=== PATIENT | female | born 1960 | race Caucasian/White ===

== ENCOUNTER → 2021-02-17 07:14 | Outpatient (CLI) | payer OTHER, SELFPAY ==
[2021-02-18 01:52] LABS: SARS-CoV-2 RNA PCR Negative
== END ==
PROVIDERS: PCP Family Medicine Adolescent Medicine; Visit Provider Physician Assistant
DX: R05 Cough (principal); J02.9 Acute pharyngitis, unspecified; Z20.822 Contact with and (suspected) exposure to COVID-19
CPT/HCPCS: C9803; U0003; U0005

== ENCOUNTER → 2021-07-01 00:22 | Outpatient (CLI) | payer OTHER, SELFPAY ==
[2021-07-03 19:59] LABS: SARS-CoV-2 RNA PCR Negative
== END ==
PROVIDERS: PCP Family Medicine Adolescent Medicine; Visit Provider Physician Assistant
DX: R05.9 Cough, unspecified (principal); Z20.822 Contact with and (suspected) exposure to COVID-19
CPT/HCPCS: C9803; U0003; U0005

== ENCOUNTER 2024-10-27 19:12 | Emergency (ER) | payer OTHER, SELFPAY ==
--- NOTE | ~2024-10-27 | XR_ITS ---
XR hand RT min 3V Ordering provider: Beverly De Souza MD History: . fall, hit hand . Comparison: None. FINDINGS: BONES: No acute fracture or dislocation. Sclerotic areas seen in the distal tip of the distal phalanx of the fourth finger suggestive of osteoma. Follow-up advised.. JOINT SPACES: Normal. SOFT TISSUES: Normal. IMPRESSION: No acute osseous abnormality right hand. 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 Follow-up advised. Reviewed, dictated and finalized at location A. IMPRESSION: No acute osseous abnormality right hand. 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 Follow -up advised.
--- NOTE | ~2024-10-27 | CT_ITS ---
CT facial & cervical spine wo Ordering provider: Beverly De Souza MD History: . fall, hit face . Comparison: None. Technique: Thin slice axial CT of the facial bones was performed without contrast. Coronal and sagit ld reformatted images were also obtained. . Automated exposure control and iterative reconstruction technique were employed. The dose-length product was 204.26 mGy-cm. FINDINGS: PARANASAL SINUSES: Well aerated. Left nasal septal deviation. BONES: No facial fracture including no nasal bone fracture. ORBITS AND SUPERFICIAL SOFT TISSUES: The optic globes and orbits are normal. Small right frontal scal p hematoma. Otherwise, The superficial soft tissues are normal. VISUALIZED MASTOIDS: Well aerated. LIMITED VISUALIZED BRAIN PARENCHYMA: Normal. IMPRESSION: No facial fracture. CT facial & cervical spine wo Ordering provider: Beverly De Souza MD History: . fall, hit face . Comparison: None. Technique: CT of the cervical spine was performed without contrast. Sagittal and coronal reformatted images were also obtained and reviewed. Automated exposure control and iterative reconstruction arpan hnique were employed. The dose-length product was 204.26 mGy-cm. FINDINGS: VERTEBRAE: No subluxation or acute fracture. The occipital condyles are intact. DISC SPACES: Narrowing of the disc C5-C6. Multilevel facet joint disease. Multilevel uncovertebral pato int osteoarthritic changes. Multilevel intervertebral foraminal narrowing seen. PARASPINOUS SOFT TISSUES: Normal. IMPRESSION: No acute osseous abnormality cervical spine. Degenerative disc disease at the level of C5-C6. Reviewed, dictated and finalized at location A. IMPRESSION: No facial fracture. CT facial & cervical spine wo Ordering provider: Beverly De Souza MD History: . fall, hit face . Comparison: None. Technique: CT of the cervical spine was performed without contrast. Sagittal a nd coronal reformatted images were also obtained and reviewed. Automated expos ure control and iterative reconstruction technique were employed. The dose-marlon th product was 204.26 mGy-cm. FINDINGS: VERTEBRAE: No subluxation or acute fracture. The occipital condyles are intact. DISC SPACES: Narrowing of the disc C5-C6. Multilevel facet joint disease. Multi level uncovertebral joint osteoarthritic changes. Multilevel intervertebral for aminal narrowing seen. PARASPINOUS SOFT TISSUES: Normal.
--- NOTE | ~2024-10-27 | CT_ITS ---
CT brain wo con Ordering provider: Beverly De Souza MD History: 64 years Female with . fall, hit face . Comparison: None. Technique: CT of the head without contrast. Radiation reduction technique utilized.The dose-length pr oduct was 681 mGy-cm. FINDINGS: BRAIN PARENCHYMA AND CSF SPACES: Mild leukoaraiosis and diffuse cortical atrophy. Mild atheromatous d isease. No midline shift, mass effect or hemorrhage. The brain parenchyma and CSF spaces are otherwi se normal. VISUALIZED PARANASAL SINUSES: Well aerated. Left nasal septal deviation. MASTOIDS: Well aerated. BONES: The bones appear intact. SOFT TISSUES: Visualized nasopharynx is normal. Superficial soft tissues are normal. IMPRESSION: No acute intracranial findings. Reviewed, dictated and finalized at location A.
--- OUTSIDE RECORDS SUMMARY | 2024-10-27 19:14 | XMS_ITS | Clinical Summary ---
Author Organization [facility] Address [address] [place] [address] Care Team Providers Care Fiber Designer Name Role Phone Jacinto Tabares MD Primary Care Provider + Source Comments [facility],non-[facility] Affiliates and Associated Physician Practices is amultiple site organization consisting of ambulatory clinics and hospital sitesin [place], [place], [place] and [place]. This disclosure is being madepursuant to the Care Everywhere program and may not contain all information available regarding this patient. Last updated 18.[facility] Allergies Active Allergy Reactions Criticality Noted Date Comments Amoxicillin 11/24/2016 CAN TAKE 500 MG CAN NOT TAKE 875 MG Augmentin 11/24/2016 Clarithromycin GI Discomfort 11/24/2016 metallic taste in mouth Doxycycline 11/24/2016 Dirithromycin 11/24/2016 Erythromycin 11/24/2016 Levofloxacin 11/24/2016 Sulfa Drugs 11/24/2016 Azithromycin 11/24/2016 Medications * Be aware that medications may not be up to date on this document. Alwaysverify current medications with the patient. Triamcinolone Acetonide (NASACORT AQ NA) Act shayy ibuprofen (ADVIL) 200 MG capsule Take 200 mg by mouth 3 times daily Active Family History Medical History Relation Name Comments Cancer - Liver Father Relation Name Status Comments Father Social History Tobacco Use Types Packs/Day Years Used Date Smoking Tobacco: Never Smokeless Tobacco: Never Comments No Sex and Gender Information Value Date Recorded Sex Assigned at Not on file Legal Sex Female 9:22 AM CDT Gender Identity Not on file Sexual Orientation Not on file Last Filed Vital Signs Vital Sign Reading Time Taken Comments Blood Pressure 138/82 08/18/2019 6:21 PM AMBULATORY TECHNOLOGIST Pulse 90 08/18/2019 6:21 PM AMBULATORY TECHNOLOGIST Temperature 36.7 C (98.1 F) 08/18/2019 6:21 PM AMBULATORY TECHNOLOGIST Respiratory Rate 14 08/18/2019 6:21 PM AMBULATORY TECHNOLOGIST Oxygen Saturation 98% 08/18/2019 6:21 PM AMBULATORY TECHNOLOGIST Inhaled Oxygen Concentration - - Weight 68 kg (150 lb) 08/18/2019 6:21 PM AMBULATORY TECHNOLOGIST Height 171.5 cm (5' 7.5 ) 08/18/2019 6:21 PM AMBULATORY TECHNOLOGIST Body Mass Index 23.15 08/18/2019 6:21 PM AMBULATORY TECHNOLOGIST Plan of Treatment Health Maintenance Due Date Last Done Comments BONE DENSITY TESTING 1959 COLOGUARD (AGES 45-75) - COL ON CA SCREENING 1959 COLON MONITORING 1959 COLONOSCOPY - COLON CA SCREENING 1959 CT COLONOGRAPHY - COLON CA SCREENING 1959 Colorectal Cancer Screening 1959 FIT - COLON CA SCREENING 1959 FLEX SIG - COLON CA SCREENING 1959 LIPID TESTING 1959 MAMMOGRAM 1959 PAP SMEAR 1959 HIV SCREENING 1974 HEPATITIS C SCREENING 04/18/1977 DTAP/TDAP/TD VACCINES (1 - Tdap) 1978 PNEUMOCOCCAL VACCINE 50+ (1 of 1 - PCV) 2009 ZOSTER VACCINE (1 of 2) 2009 COVID-19 VACCINE ( - 2023-2 5 season) 2024 DEPRESSION SCREENING 07/15/2024 INFLUENZA VACCINE (Season Ended) 2025 Respiratory Syncytial Virus (RSV) Vaccine Pt: or over 60 yrs (1 - 1-dose 75+ series) 2034 HEPATITIS B VACCINE Aged Out No longe r eligible based on patient's age to complete this topic HIB VACCINE Aged Out No longer eligi ble based on patient's age to complete this topic HPV VACCINE Aged Out No longer eligi ble based on patient's age to complete this topic MENINGOCOCCAL (Group B) VACC INE SHARED DECISION-MAKING Aged Out No longer eligibl e based on patient's age to complete this topic MENINGOCOCCAL GROUPS A/C/Y/W VACCINE Aged Out No longer eligible b ased on patient's age to complete this topic Insurance [facility] Advance Directives Documents on File Type Date Recorded 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
[2024-10-27 19:17] VITALS: BP 151/71; PULSE 78; RESP 20; TEMP 36.9; O2SAT 100
--- OUTSIDE RECORDS SUMMARY | 2024-10-27 19:56 | XMS_ITS | Clinical Summary ---
Author Organization [facility] Address [address] [place] [address] Care Team Providers Care Kick Plate Installer Name Role Phone Jacinto Tabares MD Primary Care Provider + Source Comments [facility],non-[facility] Affiliates and Associated Physician Practices is amultiple site organization consisting of ambulatory clinics and hospital sitesin [place], [place], [place] and [place]. This disclosure is being madepursuant to the Care Everywhere program and may not contain all information available regarding this patient. Last updated 18.[facility] Allergies Active Allergy Reactions Criticality Noted Date [...] Comments Blood Pressure 138/82 08/18/2019 6:21 PM SLIP BRIDGE OPERATOR Pulse 90 08/18/2019 6:21 PM SLIP BRIDGE OPERATOR Temperature 36.7 C (98.1 F) 08/18/2019 6:21 PM SLIP BRIDGE OPERATOR Respiratory Rate 14 08/18/2019 6:21 PM SLIP BRIDGE OPERATOR Oxygen Saturation 98% 08/18/2019 6:21 PM SLIP BRIDGE OPERATOR Inhaled Oxygen Concentration - - Weight 68 kg (150 lb) 08/18/2019 6:21 PM SLIP BRIDGE OPERATOR Height 171.5 cm (5' 7.5 ) 08/18/2019 6:21 PM SLIP BRIDGE OPERATOR Body Mass Index 23.15 08/18/2019 6:21 PM SLIP BRIDGE OPERATOR Plan of Treatment Health Maintenance Due Date [...] patient's age to complete this topic Insurance [facility] Advance Directives Documents on File Type Date Recorded Patient Supervisor Powdered Sugar Expl anation Adv Directive/Living Will/POA 11/24/2016 Care Teams Kick Plate Installer Relationship Specialty Start Date End Date Jacinto Tabares MD [address] [place] [id number] PCP - General Family Medicine 11/24/16
--- NOTE | 2024-10-27 20:07 | ED_ITS ---
HPI - Fall General Chief Complaint: Fall Stated Complaint: GLF, No LOC-facial abrasions Time Seen by Provider: 10/27/24 19:36 History of Present Illness HPI Narrative: Patient actually tripped on the asphalt and landed face 1st, scraping up her hands, knees, face. No loss of consciousness. Most of her pain is in her right ring finger. No nausea vomiting, focal numbness or weakness, she was able to walk back to her friend's house. Related Data Allergies Allergy/AdvReac Type Severity Reaction Status Date / Time clarithromycin AdvReac Intermediate Nausea Verified 10/27/24 19:22 dirithromycin (From Dynabac) AdvReac Unknown Unknown Verified 10/27/24 19:22 doxycycline AdvReac Unknown Other Verified 10/27/24 19:22 erythromycin base AdvReac Unknown Diarrhea Verified 10/27/24 19:22 levofloxacin AdvReac Unknown Other Verified 10/27/24 19:22 minocycline AdvReac Unknown Itching Verified 10/27/24 19:22 AMOXICILLIN TRIHYDRATE Allergy Unknown Unknown Uncoded 10/27/24 19:22 SULFA Allergy Unknown Rash Uncoded 10/27/24 19:22 ZPAK AdvReac Unknown Unknown Uncoded 10/27/24 19:22 Review of Systems Review of Systems: All systems reviewed & are unremarkable except as noted in HPI and below PMFSH Past Medical History Medical History (Updated 10/27/24 @ 21:36 by Beverly De Souza MD) Bilateral cataracts Surgical History Surgical History History of tonsillectomy Family History Family History Father Liver cancer Social History Social History (Updated 10/08/23 @ 14:34 by Carmen Neumann CMA) Smoking status: Never smoker Second hand tobacco smoke exposure: No Alcohol intake: never Substance use: never Substance use type: does not use Do You Feel Safe in your Home?: Yes Lack of Transportation: No Lack of Food: Never True Current Housing: I Have Housing Concerned About Future Housing: No Difficulty Paying Gas/Electric Bills: No Difficulty Paying for Meds: No Currently Unemployed: No Education: Master's Degree or Higher Difficulty w/ Childcare or Family Care: No Living arrangements: alone Occupation/Education: occupation Gender identity (if verbalized by the patient): Female Sexual Orientation (if Verbalized by the Patient): Straight or Heterosexual Spiritual care concerns: No Agree to blood products: Yes Exam Narrative: EXAMINATION OF ORGAN SYSTEMS/BODY AREAS: Constitutional: Vital signs per nursing GENERAL:[No acute distress, non-toxic appearing.] HEAD: Normal with no signs of head trauma. EYES: EOMI, conjunctiva normal ENT: Hearing grossly intact LUNGS: Nonlabored breathing. HEART: [Regular rate and rhythm] ABD: [Soft], [nontender to palpation] EXT: Normal range of motion, no obvious bony deformity or tenderness SKIN: Extensive abrasions across right-sided face with 1 deeper laceration right forehead, one deep laceration to the left knee, 1 deep laceration across the right ring finger NEURO: [Alert and oriented x 3. No gross focal sensory or strength deficits.] PSYCH: Normal affect Course Vital Signs Vital signs: Vital Signs Temperature 98.5 F 10/27/24 19:17 Pulse Rate 78 10/27/24 19:17 Respiratory Rate 20 10/27/24 19:17 Blood Pressure 151/71 H 10/27/24 19:17 Pulse Oximetry 100 10/27/24 19:17 Oxygen Delivery Room Air 10/27/24 19:17 Temperature 98.5 F 10/27/24 19:17 Pulse Rate 78 10/27/24 19:17 Respiratory Rate 20 10/27/24 19:17 Blood Pressure 151/71 H 10/27/24 19:17 Pulse Oximetry 100 10/27/24 19:17 Oxygen Delivery Room Air 10/27/24 19:17 Procedures Laceration Laceration 1: Date: 10/27/24 Side (If applicable): right Size (cm): 3 Description: linear Depth: simple, single layer Local Anesthetic: lidocaine 1% and with epi Amount of anesthesia used (mL): 1 Pre-repair: wound explored, irrigated, irrigated extensively and deep stru ctures intact ====== Skin Level ====== Skin layer closed with: nylon Size (cm): 3-0 Number of sutures: 2 Technique: simple, interrupted ====== Subcutaneous Layer ====== ====== Muscle Layer ====== ====== Tendon Layer ====== Laceration 2: Date: 10/27/24 Site: lower extremity Side (If applicable): left Size (cm): 1 Description: linear Depth: simple, single layer Local Anesthetic: lidocaine 1% Amount of anesthesia used (mL): 1 Pre-repair: wound explored, irrigated, irrigated extensively and deep structures intact ====== Skin Level ====== Skin layer closed with: nylon Size (cm): 3-0 Number of sutures: 1 Technique: simple, interrupted ====== Subcutaneous Layer ====== ====== Muscle Layer ====== ====== Tendon Layer ====== Laceration 3: Date: 10/27/24 Site: face Side (If applicable): right Size (cm): 1 Description: linear Depth: simple, single layer Local Anesthetic: lidocaine 1% Amount of anesthesia used (mL): 1 Pre-repair: irrigated, irrigated extensively and deep structures intact ====== Skin Level ====== Skin layer closed with: dermabond ====== Subcutaneous Layer ====== ====== Muscle Layer ====== ====== Tendon Layer ====== MDM - Fall MDM Narrative Medical decision making narrative: Patient presents here after she tripped on asphalt and hit her face, she did have multiple abrasions across her hands, knees, face, and a laceration across her right ring finger, left knee, right forehead. Wounds are irrigated well here, cleaned and dressed, closed as described in procedure notes. Tetanus updated. X-ray showing no obvious acute abnormality but possible osteoma. Plan for discharge if all imaging negative. Care and return precautions discus sed with patient. Discharge Plan Discharge Clinical Impression: Multiple lacerations, Fall, Abrasion Patient Disposition: Home Condition: Stable Instructions: Antibiotic Form, Laceration (ED), Head Injury (ED), Abrasion (ED) Additional Instructions: You have 3 sutures that need to come out in 10-14 days, one in your knee and 2 in your finger. You can take Tylenol for pain. Your hand x-ray also shows a possible tumor to right 4th digit. Please follow- up with your doctor, keep those cuts clean and moist and out of the sun, come back for any further issues. Patient Language: Irish Prescriptions: No Action carisoprodol 350 mg tablet 350 mg PO TID PRN (Reason: muscle pain) Qty: 30 0RF terbinafine HCl 250 mg tablet 250 mg PO DAILY Qty: 90 2RF Follow-up/Referrals: Jacinto Tabares MD [Primary Care Provider] - 2 Days
[2024-10-27] MEDS: TETANUS,DIPHTHERIA,AC PERTUSSIS ADULT (0.5 ML) BOOSTRIX IM (21:38)
[2024-10-27 22:25] VITALS: BP 171/92; PULSE 99; RESP 15; O2SAT 100
== END 2024-10-27 22:26 | disposition home or self-care (01) ==
PROVIDERS: Emergency Provider Emergency Medicine; PCP Family Medicine Adolescent Medicine
DX: S01.81XA Laceration without foreign body of other part of head, initial encounter (principal); S81.012A Laceration without foreign body, left knee, initial encounter; S61.214A Laceration without foreign body of right ring finger without damage to nail, initial encounter; S00.81XA Abrasion of other part of head, initial encounter; R93.6 Abnormal findings on diagnostic imaging of limbs; Z23 Encounter for immunization; H26.9 Unspecified cataract; W01.0XXA Fall on same level from slipping, tripping and stumbling without subsequent striking against object, initial encounter
CPT/HCPCS: 12002; 70450; 70486; 72125; 73130; 90471; 90715; 99284; J2004

== ENCOUNTER 2025-07-14 12:30 | Outpatient (CLI) | payer OTHER, SELFPAY ==
[2025-07-14 13:14] LABS: Hematocrit 37.5 % (37.0-47.0); Hemoglobin 12.2 g/dL (12.0-15.0); Immature Granulocyte Percent A 0.4 % (0-0.5); Lymphocytes Absolute Auto 1.07 K/mm3 (0.9-3.2); Mean Corpuscular HGB Conc 32.5 g/dl (32-36); Mean Corpuscular Hemoglobin 29.8 pg (26-34); Mean Corpuscular Volume 91.7 fl (80-100); Nucleated Red Blood Cells Absolute Auto 0.000 K/mm3 (0.0-0.012); Nucleated Red Blood Cells Perc 0.0 % (0.0-0.2); Platelet Count Result 307 k/mm3 (150-375); Red Blood Count 4.09 M/mm3 (4.2-5.4); White Blood Count 5.2 K/mm3 (4.5-10.0)
[2025-07-14 13:34] LABS: Alanine Aminotransferase 18 U/L (6-35); Albumin Level 3.9 g/dL (3.5-5.1); Alkaline Phosphatase 94 U/L (38-126); Anion Gap 4 mmol/L (4-12); Aspartate Amino Transferase 35 U/L (14-36); Bilirubin,Total 0.5 mg/dL (0.2-1.3); Blood Urea Nitrogen 13 mg/dL (7-17); Calcium 9.1 mg/dL (8.4-10.2); Carbon Dioxide 31 mmol/L (22-30); Chloride 101 mmol/L (98-107); Cholesterol 182 mg/dL (0-200); Estimated Glomerular Filt Rate > 60; Glucose 89 mg/dL (65-110); HDL Direct 33 mg/dL; Potassium 4.2 mmol/L (3.4-5.0); Sodium 136 mmol/L (137-145); Total Protein 7.6 g/dL (6.3-8.2); Triglycerides 254 mg/dL (<150)
[2025-07-14 14:19] LABS: Thyroid Stimulating Hormone 5.840 uIU/mL (0.465-4.680)
== END 2025-07-14 12:31 | disposition home or self-care (01) ==
PROVIDERS: PCP Internal Medicine; Visit Provider Internal Medicine
DX: Z00.00 Encounter for general adult medical examination without abnormal findings (principal); Z13.21 Encounter for screening for nutritional disorder; Z13.29 Encounter for screening for other suspected endocrine disorder
CPT/HCPCS: 36415; 80053; 80061; 82306; 84443; 85025